=== PATIENT | female | born 1930 | race Caucasian/White ===

== ENCOUNTER 2016-11-10 13:11 | Inpatient (IN) | payer MEDICARE ==
[~2016-11-10] VITALS: Ht 152.4 cm; Wt 38.8 kg
[2016-11-10] MEDS ORDERED: NS 1,000 ML IV SCH (15:23)
--- NOTE | 2016-11-10 16:05 | REP ---
CT HEAD WITHOUT CONTRAST: HISTORY: Loss of consciousness. Areas of decreased attentuation are present in the periventricular white matter. This represents small vessel ischemic disease. There is no intraparenchymal hemorrhage, mass or midline shift. The ventricular system and cortical sulci are dilated consistent with mild volume loss. There is no extracerebral collection. There is no fracture. Mucosal thickening is present in the maxillary and ethmoid sinuses. IMPRESSION: 1. Small vessel ischemic disease. 2. Mild volume loss. Signed by Douglas Jeffrey MD 11/10/2016 04:08 P
--- NOTE | 2016-11-10 16:15 | REP ---
Chest x-ray: Single view: History: Altered mental status. No comparison studies. Findings: The lungs are well inflated and free of infiltrate. Cardiomediastinal silhouette is unremarkable. There is diffuse osteopenia. There are some degenerative changes in the thoracic and lumbar spine. Mild vascular calcification is observed. Pulmonary vasculature is not increased. Impression: No active disease. Signed by Andrey Hancock MD 11/10/2016 07:45 P
--- NOTE | 2016-11-10 16:24 | REP ---
Pelvis and bilateral hips: Six views. History: Injury in a fall. Findings: AP view of the pelvis demonstrates some diffuse osteopenia. Bony pelvic ring appears intact. No pelvic or sacral fracture is appreciated. There is bilateral hip joint osteoarthritis. Vascular calcifications is noted. Degenerative spondylosis changes are noted in the lumbar spine. AP and frog-leg views of the right hip show mild superior joint space narrowing and spur formation consistent with osteoarthritis. No fracture is seen. Three views of the left hip demonstrate osteoarthritic spurring on the head/neck junction of the femur. There is some greater trochanteric spurring and mild acetabular spurring. Superior joint space narrowing is seen. No fracture is noted. Impression: Bilateral hip joint osteoarthritis. Diffuse osteopenia. No fracture seen. Signed by Andrey Hancock MD 11/10/2016 07:45 P
[2016-11-10 16:31] LABS: MEAN CORPUSCULAR HEMOGLOBIN 31.2 pg (27.0-33.0); MEAN CORPUSCULAR HGB CONC 32.2 g/dl (32.0-36.5); MEAN CORPUSCULAR VOLUME 96.8 fl (80.0-96.0); PLATELET COUNT, AUTOMATED 175 k/mm3 (150-450); RED CELL DISTRIBUTION WIDTH 13.3 % (11.5-14.5)
[2016-11-10 16:55] LABS: ALBUMIN 3.9 GM/DL (3.2-5.2); ALBUMIN/GLOBULIN RATIO 1.03 (1.00-1.93); ALKALINE PHOSPHATASE 102 U/L (45-117); ALT/SGPT 44 U/L (12-78); ANION GAP 15 MEQ/L (8-16); AST/SGOT 81 U/L (15-37); BILIRUBIN,DIRECT 0.3 MG/DL (0.0-0.2); BILIRUBIN,TOTAL 1.2 MG/DL (0.2-1.0); BLOOD UREA NITROGEN 37 MG/DL (7-18); CALCIUM LEVEL 10.6 MG/DL (8.8-10.2); CARBON DIOXIDE LEVEL 24 MEQ/L (21-32); CHLORIDE LEVEL 109 MEQ/L (98-107); CREATININE FOR GFR 1.05 MG/DL (0.55-1.02); GLOMERULAR FILTRATION RATE 52.8 (>32); GLUCOSE, FASTING 104 MG/DL (83-110); POTASSIUM SERUM 3.8 MEQ/L (3.5-5.1); SODIUM LEVEL 148 MEQ/L (136-145); TOTAL PROTEIN 7.7 GM/DL (6.4-8.2)
[2016-11-10 16:58] LABS: BANDS 10 % (< 11)
[2016-11-10] MEDS ORDERED: PROB1TAB PO (20:08)
[2016-11-10] MEDS ORDERED: VITMTA PO (20:08)
[2016-11-10] MEDS ORDERED: ASCO500T PO (20:08)
[2016-11-10] MEDS ORDERED: CALC600T21 PO (20:08)
[2016-11-10] MEDS ORDERED: VITA-122 PO (20:08)
--- NOTE | 2016-11-10 20:58 | ECGEPIP ---
Stationary ECG Study [facility] - ED Test Date: 2016-11-10 Pat Name: CLARK CHAND Department: Room: - Gender: F Double Bottom Driver: KATRINA : 1930 Requested By: GABE Delatorre Order Number: [id number] Reading MD: Nguyễn Gonsalez Measurements Intervals [place] Rate: 82 P: 91 VT: 133 QRS: -25 QRSD: 86 T: 120 QT: 203 QTc: 238 Interpretive Statements SINUS RHYTHM BORDERLINE LEFT AXIS DEVIATION NONSPECIFIC ST & T-WAVE ABNORMALITY NO PRIORS Electronically Signed On 11-10-2016 20:58:09 EST by Nguyễn Gonsalez
[2016-11-10 21:40] VITALS: BP 127/60
[2016-11-10] MEDS: NS 1,000 ML IV SCH (22:09)
[2016-11-10] MEDS ORDERED: VANCOMYCIN HCL 1,000 MG, VIAL MATE ADAPTER 1 EACH in D5W 250 ML IV SCH (22:45)
[2016-11-10] MEDS ORDERED: MEROPENEM INJ 1 GM in D5W MINI-BAG PLUS 100 ML IV SCH (23:00)
--- NOTE | 2016-11-10 23:20 | PHACANCOPD ---
PHARMACY VANCOMYCIN DOSING Pt Demographics Demographics Patient Age:86 , Weight:38.400 , Gender: female Events Past 24 Hours Events Past 24 Hours: NO: Change in CrCl, Dialysis, Diuretic Therapy, Elevation in WBC, Fever, Other, Pending Diagnostics, Pending Procedures Vancomycin Vancomycin Load Y/N: Yes Load Dose Date Time Vancomycin Load Dose: 750MG Date: 11/11/16 Time: 01:00 Vancomycin Dose Date: 11/11/16. Current Vancomycin Dose: [500MG IV Q24H (09:00)] Intermittent Dosing?: No Labs Labs Laboratory Tests 11/10/16 16:15 Red Blood Count 5.26, Mean Corpuscular Volume 96.8 H, Mean Corpuscular Hemoglobin 31.2, Mean Corpuscular Hemoglobin Concent 32.2, Red Cell Distribution Width 13.3, Neutrophils (%) (Auto) , Lymphocytes (%) (Auto) , Monocytes (%) (Auto) , Eosinophils (%) (Auto) , Basophils (%) (Auto) , Neutrophils # (Auto) , Lymphocytes # (Auto) , Monocytes # (Auto) , Eosinophils # (Auto) , Basophils # (Auto) Micro Microbiology 11/10/16 Urine Culture, Received Pending Creatinine Clearance Date:11/10/16. Creatinine Clearance: [> 20ml/min]. Assessment and Plan Maintaining Current Dose?: Yes Reason for dose change: Other Pharmacist Note Pharmacist Note Date: 11/11/16. Pharm.D. note: 86YO FEMALE, 60: in HEIGHT, 39.6KG in WEIGHT, SCR 1.05 mcg.ml, CRCL 23ml/min. MEROPENEM 1GM V Q12H STARTING AT 23:00 WE WILL GIVE A VANCO 750MG LOAD AT 01:00 FOLLOWED BY VANCO 500MG IV Q24H STARTING AT 09:00 VANCO TROUGH TO FOLLOW WHEN AT [facility] Nov 10, 2016 23:20
[2016-11-10] MEDS ORDERED: INFLUENZA VIRUS VACCINE HIGH DOSE 0.5 ML SYRINGE (90662) IM SCH (23:45)
--- NOTE | 2016-11-10 23:45 | HPE ---
DATE OF ADMISSION: 11/10/2016 REASON FOR ADMISSION: Non-ST elevation myocardial infarction (NSTEMI). HISTORY OF PRESENT ILLNESS: The patient is an 86-year-old female with no past medical history, lives independently, was brought into the emergency room via ambulance after her family found her on the floor. The patient was on the floor for an unknown period of time. She was last visited by one of her friends yesterday around mid day after she called him because of a fall. Per family, the patient had a fall early Thursday morning at 1:00 a.m. She was on the floor, had her phone with her, called her friend who came by, helped her up and put her in bed, left around Thursday. She talked to him later on in the day when he called to check on her and then Thursday her family tried to call her, but she did not answer. They tried multiple times, after she did not answer and then they showed up at her house on Thursday where she was found on the floor with some scraping to her neck and shoulder. At that time, the patient was awake but confused, she did not have any pain anywhere. In the ER she was oriented to time and person but not to place. Per the family, she normally is alert and oriented but they have noted that over the past few days, she has been more disoriented and confused than her normal baseline mentation. The patient, however, appears disheveled and unkempt. Per the family, she likely will need more help at home or terminal block assembler placement and she is not fit to live by herself any longer. In the emergency room, the patient was found to have elevated troponin of 1.75, some EKG abnormalities. Dr. Peralta was contacted from the emergency room. He recommended to manage the patient medically. It was discussed with the family at length who agreed that the patient needs to remain in [place] and be managed medically and not to be transferred for any invasive procedures. It was briefly discussed with the patient, who agreed, stating that she has lived a long life and does not want any invasive or heroic measures. Medical Orders for Life-Sustaining Treatment (MOLST) form was completed in the emergency room where the patient wanted to be DO NOT RESUSCITATE, DO NOT INTUBATE and it was placed on the chart. The patient was admitted to telemetry under hospitalist service. REVIEW OF SYSTEMS: Unable to obtain due to the patient's confused mentation. PAST MEDICAL HISTORY: None. PAST SURGICAL HISTORY: None. ALLERGIES: None. MEDICATIONS: The patient is on multivitamin daily, ascorbic acid - unknown strength, calcium carbonate - unknown strength, vitamin D - unknown strength, and probiotic - unknown strength. FAMILY HISTORY: Noncontributory. SOCIAL HISTORY: The patient does not smoke or drink. Lives alone at home. She has a friend of hers that comes and visits her periodically. He is the one that found her when she fell the day before admission. The patient has not seen a physician in a long time due to lack of any medical problems per her family. PHYSICAL FINDINGS: Blood pressure on admission was 140/58, temperature 96.5, pulse 66, respiratory rate 20. Pulse oximetry 90% on room air. HEENT: Pupils equal, round, reactive to light and accommodation. Neck: Supple. No jugular venous distention (JVD). Lungs: Clear to auscultation (CTA) bilaterally. Abdomen: Soft, nontender, nondistended. Extremities: No clubbing, cyanosis or edema. Skin: The patient has some abrasions to the back of her neck and shoulder. Neurologic: The patient is oriented to self and time but not to place. Per her family, the patient's mentation has been on and off for the past few days. LABORATORY FINDINGS: WBC 16, hemoglobin 16.4, hematocrit 50.9, platelet count 175, sodium 148, potassium 3.8, chloride 109, BUN 37, creatinine 1.05, hemoglobin A1c 5.2, lactic acid initially was 2.5, repeat is 2.2. CK was 784, troponin 1.75, TSH 1.62. Toxicology: Acetaminophen less than 2, salicylate less than 1.7. Urinalysis showed 2+ ketones, 1+ blood, 4 RBCs, WBCs 1, bacteria negative leukocyte esterase negative, nitrites negative. IMAGING STUDIES: The patient underwent a CT of the head which showed small ischemic disease, mild volume loss. Chest x-ray showed no active disease. Hip x-ray showed bilateral joint osteoarthritis, diffuse osteopenia, no fractures seen. ASSESSMENT AND PLAN: 1. Non-ST elevation myocardial infarction (NSTEMI). Repeat EKG did not show any obvious ST elevations at this time but there are some ST changes. We will continue to trend cardiac markers every 8 hours. We will repeat EKG in the morning. We will order an echocardiogram. Dr. Peralta has agreed to see the patient in consultation. A lengthy discussion was had with the family and patient who declined transfer and wanting the patient to be managed medically. MOLST form was completed and placed on the chart. We will start the patient on Lovenox. We will start the patient on metoprolol 25 mg by mouth four times a day, hold for systolic blood pressure less than 100 or heart rate less than 60. We will order a lipid panel in the morning. Continue oxygen supplementation. The patient denies any chest pain at this time. We will hold off on any nitro or morphine. 2. Lactic acidosis. We will continue to trend. We will order one more lactic acid level. 3. Rhabdomyolysis secondary to fall and staying on the floor for several hours. We will continue to trend CK, continue IV fluids at a rate of 80 mL an hour. We will continue to monitor kidney function. 4. Acute kidney injury. Unknown if the patient has a history of kidney disease. Per family, the patient has no medical history. This may be secondary to dehydration given that the patient has been on the floor for several hours. We will continue to trend creatinine level and to monitor kidney function. 5. Leukocytosis. May be reactive versus infectious. We will start the patient on antibiotics, broad-spectrum. Urine culture and blood cultures are pending. The patient has no obvious source at this time. If cultures come back negative, antibiotics will likely be discontinued. The patient denies any cough. Chest x-ray was found to be normal. 6. Metabolic encephalopathy. The patient has altered mentation, may be secondary to ongoing progressing dementia versus metabolic encephalopathy. We will continue to monitor the patient's mental status. At this time, we will put her on fall risk precautions. 7. Fall, unwitnessed, unknown etiology. We will monitor the patient on telemetry to rule out any cardiac arrhythmia as a cause to syncopal episodes. A CT scan was done in the emergency room which was negative. We will order physical therapy and occupational therapy once the patient stabilizes. 8. Potential placement. We will consult patient and family services (PFS). Per family, the patient is likely unable to return home to live by herself and all her family is out of the area. We will consult PFS for potential placement. 9. Deep vein thrombosis (DVT) prophylaxis. Continue Lovenox at this time. The patient will be seen by Dr. Michela Elaine in the morning. LARRY
[2016-11-10] MEDS: ENOXAPARIN 100MG/1ML SYRINGE (J1650) SC SCH (23:54)
[2016-11-10] MEDS: METOPROLOL TART 25 MG TABLET PO SCH (23:55)
[2016-11-11] VITALS (7 sets, daily range): BP systolic 126–177; BP diastolic 48–80
[2016-11-11] MEDS ORDERED: VANCOMYCIN HCL 750 MG, VIAL MATE ADAPTER 1 EACH in D5W 250 ML IV ONE (01:00)
[2016-11-11] MEDS: METOPROLOL TART 25 MG TABLET PO SCH ×4 (06:00→23:04)
--- NOTE | 2016-11-11 06:11 | ECGEPIP ---
Stationary ECG Study [facility] Test Date: 2016-11-10 Pat Name: CLARK CHAND Department: Room: - Gender: F Glass Polisher: marvel : 1930 Requested By: LATRICE PARKER Order Number: [id number] Reading MD: Tabitha Irwin Measurements Intervals [place] Rate: 73 P: 91 [place]: 143 QRS: -25 QRSD: 83 T: 96 QT: 383 QTc: 423 Interpretive Statements SINUS RHYTHM BORDERLINE LEFT AXIS DEVIATION NONSPECIFIC T-WAVE ABNORMALITY similar to earlier same presence of U waves noted Electronically Signed On 11-11-2016 6:11:08 EST by Tabitha Irwin
[2016-11-11 07:40] LABS: DIFF SLIDE NUMBER 95; MEAN CORPUSCULAR HEMOGLOBIN 30.9 pg (27.0-33.0); MEAN CORPUSCULAR VOLUME 96.6 fl (80.0-96.0); PLATELET COUNT, AUTOMATED 141 k/mm3 (150-450); RED CELL DISTRIBUTION WIDTH 13.3 % (11.5-14.5); WHITE BLOOD COUNT 15.2 K/mm3 (4.0-10.0)
[2016-11-11] MEDS: LACTOBACILLUS ACIDOPHILUS CAP (BACID) PO SCH ×3 (08:00→17:18)
[2016-11-11 08:01] LABS: ALBUMIN 3.1 GM/DL (3.2-5.2); ALBUMIN/GLOBULIN RATIO 0.97 (1.00-1.93); ALKALINE PHOSPHATASE 82 U/L (45-117); ALT/SGPT 44 U/L (12-78); ANION GAP 10 MEQ/L (8-16); AST/SGOT 84 U/L (15-37); BILIRUBIN,TOTAL 0.9 MG/DL (0.2-1.0); BLOOD UREA NITROGEN 35 MG/DL (7-18); CALCIUM LEVEL 9.4 MG/DL (8.8-10.2); CARBON DIOXIDE LEVEL 25 MEQ/L (21-32); CHLORIDE LEVEL 114 MEQ/L (98-107); CHOLESTEROL LEVEL 156 MG/DL (<200); CREATININE FOR GFR 0.77 MG/DL (0.55-1.02); GLOMERULAR FILTRATION RATE > 60.0 (>32); GLUCOSE, FASTING 95 MG/DL (83-110); MAGNESIUM LEVEL 2.5 MG/DL (1.8-2.4); POTASSIUM SERUM 3.8 MEQ/L (3.5-5.1); SODIUM LEVEL 149 MEQ/L (136-145); TOTAL PROTEIN 6.3 GM/DL (6.4-8.2); TRIGLYCERIDES LEVEL 95 MG/DL (<150)
[2016-11-11 08:34] LABS: BANDS 2 % (< 11)
[2016-11-11 08:35] LABS: ANISOCYTOSIS 1+
--- NOTE | 2016-11-11 08:53 | ECGEPIP ---
Stationary ECG Study [facility] Test Date: 2016-11-11 Pat Name: CLARK CHAND Department: Room: [place] [address] Gender: F Furnace Keeper: PRESTON : 1930 Requested By: LATRICE PARKER Order Number: [id number] Reading MD: Tabitha Irwin Measurements Intervals [place] Rate: 62 P: 74 MN: 132 QRS: -39 QRSD: 80 T: 95 QT: 398 QTc: 407 Interpretive Statements SINUS RHYTHM LEFT AXIS DEVIATION T-WAVE ABNORMALITY VS t AND U WAVES SEPTAL LEADS NONSPECIFIC ST ABN SIMILAR TO 11/10/16 Electronically Signed On 11-11-2016 8:53:13 EST by Tabitha Irwin
[2016-11-11] MEDS ORDERED: VANCOMYCIN HCL 500 MG in D5W MINI-BAG PLUS 100 ML IV SCH (09:00)
[2016-11-11] MEDS: NS 1,000 ML IV SCH ×2 (13:33→22:32)
--- NOTE | 2016-11-11 13:48 | IPN ---
DATE OF SERVICE: 11/11/2016 The patient seen and examined at the bedside. Chart has been reviewed. The patient is extremely confused this morning. "I don't want you people in my house. I don't want anyone touching me." The patient is reluctant to be interviewed. She is not answering questions appropriately. She is disoriented to person, place, and time. The patient thinks that she is at home and that people are coming into her home. After explaining that she is in the hospital and it is 11/11/2016, that she is being treated for coronary artery disease (CAD), myocardial infarction (ND), as well as possible infection, the patient was quiet. She refused to be examined and states "I need you to stay away from me. This is my body. I don't want to be touched." Temperature 99.1, pulse 65, respiratory rate 18, blood pressure 136/62, 94% on 2 liters nasal cannula. Unable to be examined due to the patient's belligerence and refusal to be examined. The patient is disoriented to person, time, and place. Unable to be examined, as the patient refused examination. LABORATORY DATA: White count 15, hemoglobin 13, hematocrit 43, platelet count 141. Sodium 149, potassium 3.8, chloride 114, bicarbonate 25, BUN 35, creatinine 0.77 , glucose of 95, magnesium of 2.5, troponin 1.11, total CK 911, MB fraction 10.7. ASSESSMENT AND PLAN: This is an 86-year-old female who lives alone, was found at her home, unable to provide a history, currently with the following issues: 1. Non-ST elevation myocardial infarction. The patient is being treated medically and conservatively. Echocardiogram is still pending. Dr. Peralta has agreed to see the patient in consultation. A lengthy discussion was done by Dr. Valarie Whitaker with the family, and the patient declined transfer, wanting the patient to be managed medically. A medical orders for life-sustaining treatment (MOLST) form has been completed. The patient is currently on Lovenox, metoprolol hold for systolic blood pressure less than 100 or less than 60 heart rate. Continue with oxygen as needed. Currently, asymptomatic. No complaints of chest pain, shortness of breath. 2. Rhabdomyolysis secondary to fall and being on the floor for several hours, mild. Continue intravenous (IV) fluids. Monitor for fluid overload. Monitor kidney function. 3. Acute kidney injury secondary to mild rhabdomyolysis secondary to fall. 4. Leukocytosis, reactive versus infectious. Currently, on empiric antibiotics. The patient is unreliable. Unable to provide any history or review of systems. Monitor lactic acid. 5. Dementia. The patient will need placement. She lives alone and has had recurrent falls. Currently, with severe disorientation. [facility]PITAL CENTERAlejandra
--- NOTE | 2016-11-11 20:36 | CR ---
DATE OF CONSULTATION: 11/11/2016 REFERRING PHYSICIAN: Dr. Whitaker HISTORY OF PRESENT ILLNESS: I was asked by Dr. Whitaker to see Mrs. Wilson for presumptive qsp-CA-hmabxowvz myocardial infarction (NON-STEMI). BRIEF HISTORY: Mrs. Wilson is an 86-year-old female who apparently has not been seen by physician for many years because "there was nothing wrong with her." She was found by family member unresponsive on the floor and was brought to hospital for further evaluation. She apparently had been seen previously the day before, so the time she spent on the floor probably was not more than about 12 hours at the maximum. She was confused, but the evaluation was otherwise unremarkable other than elevated troponin and CK and CK-MB. Unfortunately, the patient was quite incoherent, and no further significant information was possible to be obtained. When I saw the patient in intensive care, the situation did not appreciably change. She was completely disoriented, and no history was possible to obtain. PAST MEDICAL HISTORY: Based on admission note is negative, and it looks like she has not had any medical care for years. FAMILY HISTORY: The patient lives alone but unable to obtain. ALLERGIES: No allergies. OUTPATIENT MEDICATIONS: Essentially vitamins. FAMILY HISTORY: Unable to obtain. SOCIAL HISTORY: The patient lives alone but does not smoke and does not drink. REVIEW OF SYSTEMS: Unable to obtain. PHYSICAL EXAMINATION: The last set of vital signs revealed blood pressure 139/64, heart rate is in bradycardiac range, mostly in 50s and low 60s. She is afebrile. Saturation is 93-96% on 2 liters of oxygen. Her weight is documented at 40 kg. She appears her age or older, cachectic. She seems to be more mildly agitated and is not oriented even to person. When asked to state her name she would not do so, but she is alert and conversant. Her jugular venous pulse (JVP) is not elevated. She has faint bilateral carotid bruits. She has also a fairly faint murmur at the base. I do not appreciate a gallop or rub. Lungs are relatively clear to auscultation with fair air movement. I do not appreciate any obvious organomegaly on abdominal exam. She has no peripheral edema. Peripheral pulses are palpable. Neurologically she is grossly intact as far as motor function is concerned. She moves all four extremities. Her language seems to be fluent but completely disoriented. LABORATORY: Basic metabolic panel essentially normal. Potassium 3.8, BUN 35, creatinine 0.8, and glucose 95. Lactic acid that was initially marginally elevated to 2.5 eventually came back to normal. Troponin on admission was 1.75 with CK-MB 780, and this has been dropping since. TSH was 1.6. CBC: Hemoglobin 13.9, hematocrit 43, platelet count 141,000. There are some atypical lymphocytes, monocytes, and metamyelocytes in peripheral smear. IMAGING: She had a hip x-ray that revealed no fractures but degenerative joint disease (DJD. Chest x-ray was relatively unremarkable other than obvious aortic calcifications. CT of the head did not reveal any hemorrhage or obvious strokes. There was chronic small-vessel disease. Her ECG was also surprisingly unremarkable, revealing sinus rhythm with ventricular rate 73 beats per minute and fairly minimal nonspecific repolarization abnormalities and borderline left axis deviation. ASSESSMENT AND PLAN: Mrs. Wilson is an 86-year-old female who has not had any medical care for years who presents after a loss of consciousness, possibly just fall, even though no history is possible to obtain, and is found to have mild troponin elevation. She does not seem to have any discomfort or chest pain, and her ECG is relatively unremarkable. Apparently, there was a discussion between the hospitalist team and family, who do not wish to have any aggressive measures, which seems to be completely appropriate. In this situation where patient is clearly disoriented and does not seem to be any distress, I do not see any role for cardiology input. My preference would be to administer aspirin and possibly statin, even though her lipid panel is good. I would not give her any beta sharri, because she is relatively bradycardic. I do not foresee providing any aggressive measures other than TLC provided her mental condition does not improve. If it should get better, please contact me. We can always re-evaluate her.
[2016-11-11] MEDS: ENOXAPARIN 100MG/1ML SYRINGE (J1650) SC SCH (22:31)
[2016-11-12] VITALS (8 sets, daily range): BP systolic 111–175; BP diastolic 55–70
[2016-11-12 05:04] LABS: EOS # 0.1 K/mm3 (0.0-0.50); EOS % 0.5 % (0.0-3.0); LARGE UNSTAINED CELL # 0.1 K/mm3 (0.0-0.4); LARGE UNSTAINED CELL % 0.4 % (0.0-4.0); LYMPH % 7.8 % (24.0-44.0); MEAN CORPUSCULAR HEMOGLOBIN 32.1 pg (27.0-33.0); MEAN CORPUSCULAR HGB CONC 32.9 g/dl (32.0-36.5); MEAN CORPUSCULAR VOLUME 97.4 fl (80.0-96.0); MONO # 0.6 K/mm3 (0.0-0.8); MONO % 4.7 % (0.0-5.0); NEUTROPHILS # 10.8 K/mm3 (1.8-7.7); NEUTROPHILS % 86.6 % (36.0-66.0); PLATELET COUNT, AUTOMATED 123 k/mm3 (150-450); RED CELL DISTRIBUTION WIDTH 13.3 % (11.5-14.5); WHITE BLOOD COUNT 12.5 K/mm3 (4.0-10.0)
[2016-11-12 05:21] LABS: ALBUMIN 2.5 GM/DL (3.2-5.2); ALBUMIN/GLOBULIN RATIO 0.74 (1.00-1.93); ALKALINE PHOSPHATASE 67 U/L (45-117); ALT/SGPT 40 U/L (12-78); ANION GAP 11 MEQ/L (8-16); AST/SGOT 58 U/L (15-37); BILIRUBIN,TOTAL 0.8 MG/DL (0.2-1.0); BLOOD UREA NITROGEN 27 MG/DL (7-18); CALCIUM LEVEL 9.6 MG/DL (8.8-10.2); CARBON DIOXIDE LEVEL 21 MEQ/L (21-32); CHLORIDE LEVEL 117 MEQ/L (98-107); CREATININE FOR GFR 0.51 MG/DL (0.55-1.02); GLOMERULAR FILTRATION RATE > 60.0 (>32); GLUCOSE, FASTING 81 MG/DL (83-110); MAGNESIUM LEVEL 2.3 MG/DL (1.8-2.4); POTASSIUM SERUM 3.6 MEQ/L (3.5-5.1); SODIUM LEVEL 149 MEQ/L (136-145); TOTAL PROTEIN 5.9 GM/DL (6.4-8.2)
[2016-11-12] MEDS: METOPROLOL TART 25 MG TABLET PO SCH (05:53)
[2016-11-12] MEDS: D5W 1,000 ML IV SCH ×2 (08:06→20:53)
[2016-11-12] MEDS: LACTOBACILLUS ACIDOPHILUS CAP (BACID) PO SCH ×2 (08:11→18:18)
[2016-11-12] MEDS: OMEPRAZOLE 20 MG CAP PO SCH (08:12)
[2016-11-12] MEDS: ASPIRIN 81 MG CHEW TABLET PO SCH (08:12)
[2016-11-12] MEDS: LISINOPRIL 5 MG TAB PO SCH ×2 (08:12→20:45)
[2016-11-12] MEDS: ATORVASTATIN 20 MG TAB PO SCH (08:19)
[2016-11-12] MEDS ORDERED: METOPROLOL TART 25 MG TABLET PO SCH (09:00)
[2016-11-12] MEDS ORDERED: CLOPIDOGREL 75 MG TAB PO SCH (09:00)
--- NOTE | 2016-11-12 18:59 | IPN ---
DATE: 11/12/2016 The patient seen and examined at the bedside. Chart has been reviewed. This morning, the patient is much more oriented. She was able to sleep last night. She is oriented to herself, place and time. She states that it is November 08, 2016. She is in intensive care unit (ICU) on the 3rd floor at [facility], unable to state her name. The patient is much more conversant and agreeable to interview and physical examination this morning. She denies any chest pain, pressure, tightness, shortness of breath, palpitations, lightheadedness. She has not been ambulating yet. Overnight, the patient was found to be bradycardic on telemetry and her multiple doses of metoprolol had to be held. The patient was sleeping. Ventricular rate of 43. Asymptomatic at the time. No other intervention aside from holding the metoprolol were made. Temperature 99, pulse 49, respiratory rate 22, blood pressure 150/67, 98% on 2 liters nasal cannula. GENERAL: The patient is awake, alert, oriented to person, place and time. She is answering questions appropriately. No respiratory distress. Speaks in full sentences. Dry mucous membranes with chapped lips. No jugular venous distention (JVD). No thyromegaly. No cervical lymphadenopathy. Poor dentition. LUNGS: Diminished but clear to auscultation. No wheezing, rales or rhonchi. HEART: S1, S2. Sinus bradycardia. ABDOMEN: Soft, nontender, nondistended. EXTREMITIES: No pitting edema. LABORATORY DATA: White count 12.5, hemoglobin 13, hematocrit 41, platelet count 123. Sodium 149, potassium 3.6, chloride 117, bicarbonate 21, BUN 27, creatinine 0.51, glucose of 81. ASSESSMENT AND PLAN: This is an 86-year-old female who lives alone, was found at her home, unable to provide a history, found on the floor and admitted for mild rhabdomyolysis and positive troponin. EKG unremarkable. 1. Non-ST elevation myocardial infarction. The patient is being treated medically and conservatively. Per patient and family, no further evaluation. A lengthy discussion was done by Dr. Valarie Whitaker with the family. The patient declined transfer to [place] for cardiac catheterization and possible stent placement. Currently asymptomatic and being treated on Lovenox. Since the patient has had bradycardic episodes, we will discontinue the patient's metoprolol until heart rate improves. For blood pressure control, start wwavqkxxhqr-hqpxircwip-vizhyv (MICHAEL) inhibitor with holding parameters for systolic pressure less than 20 or creatinine greater than 1.5. Start on Lipitor 40 mg daily and low dose aspirin with proton pump inhibitor. Continue Lovenox for a total of five days. Activity as tolerated. Fall precautions. 2. Mild rhabdomyolysis. The patient was found on the floor for several hours. Continue intravenous (IV) fluids. Monitor for fluid overload. Monitor kidney function with repeat metabolic panel. 3. Acute kidney injury secondary to mild rhabdomyolysis secondary to fall, improving. 4. Leukocytosis, reactive versus infectious. The patient's infectious evaluation had returned with negative findings. Urine culture is negative for blood. Respiratory virus negative. Chest x-ray unremarkable. Free of infiltrate or active disease. No empiric antibiotics for now. 5. Dehydration, hypernatremia due to decrease in oral intake from confusion. The patient will be placed on D5W. Repeat metabolic panel every 6 to 12 hours for adjustment. DISPOSITION: Activity is changed from transfer from with commode privileges to activity as tolerated. Physical therapy (PT) and cardiac rehabilitation evaluation. Thrombocytopenia, monitor platelet count. If less than 50% of admission platelets, we will consider checking heparin induced thrombocytopenia (HIT) panel.
[2016-11-12] MEDS: ENOXAPARIN 100MG/1ML SYRINGE (J1650) SC SCH (21:43)
[2016-11-13 06:00] VITALS: BP 133/62
--- NOTE | 2016-11-13 06:30 | ECHO ---
DATE OF PROCEDURE: 11/12/2016 DATE OF : 1930 AGE: 86 REFERRING PROVIDER: Dr. Valarie Whitaker. PATIENT LOCATION: Room 3205 REASON FOR ECHOCARDIOGRAM: Abnormal EKG. 2D MEASUREMENTS: IVS: 0.84 cm LV: 4.1 cm LVPW: 0.84 cm LA: 2.9 cm Aorta: 2.5 cm IVC: 1.8 cm DOPPLER MEASUREMENTS: Peak velocity across the aortic valve: 2.0 m/s Peak velocity across the LVOT: 1.2 m/s Mitral E: 0.91 Mitral A: 0.82 Ratio greater than1.0 Maximum tricuspid valve velocity: 2.9 m/s 2D COMMENTS: 1. Normal left ventricular size, wall thickness and normal global left ventricular systolic function. The estimated global left ventricular systolic ejection fraction is 60% to 65%. 2. Normal left atrium. Mildly enlarged right atrium. Normal right ventricle. 3. The atrial septum appeared to be normal without evidence of defect or shunt. 4. Normal aortic root. 5. No pericardial effusion seen. 6. Moderately calcified aortic valve with normal leaflet excursion. Mildly calcified mitral annulus with normal anterior mitral valve leaflet motion. Normal tricuspid valve and pulmonic valve. 7. The inferior vena cava was normal in size, central venous pressure is most likely normal. DOPPLER: It detects trace to mild mitral regurgitation and mild to moderate tricuspid regurgitation. The calculated pulmonary artery systolic pressure is 40 to 50 mmHg. Assessment of the left ventricular diastolic function appeared to be normal. IMPRESSION: 1. Normal global left ventricular systolic and diastolic function. 2. Aortic valve sclerosis with probably minimal aortic stenosis. No aortic regurgitation. 3. Mitral annulus calcification with trace to mild mitral regurgitation. 4. Mild to moderate tricuspid regurgitation with moderate pulmonary hypertension and dilated right atrium. No intracardiac shunt was detected.
[2016-11-13 07:10] LABS: BASO % 0.1 % (0.0-1.0); EOS # 0.1 K/mm3 (0.0-0.50); EOS % 1.2 % (0.0-3.0); LARGE UNSTAINED CELL # 0.1 K/mm3 (0.0-0.4); LARGE UNSTAINED CELL % 0.7 % (0.0-4.0); LYMPH # 1.2 K/mm3 (1.5-4.5); LYMPH % 10.3 % (24.0-44.0); MEAN CORPUSCULAR HEMOGLOBIN 31.7 pg (27.0-33.0); MEAN CORPUSCULAR HGB CONC 33.3 g/dl (32.0-36.5); MEAN CORPUSCULAR VOLUME 95.5 fl (80.0-96.0); MONO # 0.6 K/mm3 (0.0-0.8); MONO % 5.9 % (0.0-5.0); NEUTROPHILS # 8.8 K/mm3 (1.8-7.7); NEUTROPHILS % 81.8 % (36.0-66.0); PLATELET COUNT, AUTOMATED 123 k/mm3 (150-450); RED CELL DISTRIBUTION WIDTH 13.1 % (11.5-14.5); WHITE BLOOD COUNT 10.7 K/mm3 (4.0-10.0)
[2016-11-13 07:26] LABS: ALBUMIN 2.1 GM/DL (3.2-5.2); ALBUMIN/GLOBULIN RATIO 0.64 (1.00-1.93); ALKALINE PHOSPHATASE 74 U/L (45-117); ALT/SGPT 33 U/L (12-78); ANION GAP 9 MEQ/L (8-16); AST/SGOT 34 U/L (15-37); BILIRUBIN,TOTAL 0.7 MG/DL (0.2-1.0); BLOOD UREA NITROGEN 16 MG/DL (7-18); CALCIUM LEVEL 8.9 MG/DL (8.8-10.2); CARBON DIOXIDE LEVEL 26 MEQ/L (21-32); CHLORIDE LEVEL 106 MEQ/L (98-107); CREATININE FOR GFR 0.51 MG/DL (0.55-1.02); GLOMERULAR FILTRATION RATE > 60.0 (>32); GLUCOSE, FASTING 125 MG/DL (83-110); MAGNESIUM LEVEL 2.1 MG/DL (1.8-2.4); POTASSIUM SERUM 3.3 MEQ/L (3.5-5.1); SODIUM LEVEL 141 MEQ/L (136-145); TOTAL PROTEIN 5.4 GM/DL (6.4-8.2)
[2016-11-13] MEDS ORDERED: POTASSIUM CHLORIDE 10 MEQ SR TABLET PO ONE (08:00)
[2016-11-13] MEDS ORDERED: LISINOPRIL 10 MG TAB PO SCH (09:00)
[2016-11-13 10:00] VITALS: BP 136/59
[2016-11-13] MEDS: LACTOBACILLUS ACIDOPHILUS CAP (BACID) PO SCH ×2 (10:41→18:31)
[2016-11-13] MEDS: ATORVASTATIN 20 MG TAB PO SCH (10:42)
[2016-11-13] MEDS: OMEPRAZOLE 20 MG CAP PO SCH (10:42)
[2016-11-13] MEDS: ASPIRIN 81 MG CHEW TABLET PO SCH (10:42)
[2016-11-13] MEDS: D5W 1,000 ML IV SCH ×2 (10:44→23:45)
[2016-11-13] MEDS ORDERED: CEPACOL LOZENGE PO ONE (11:15)
--- NOTE | 2016-11-13 17:35 | IPN ---
DATE: 11/13/2016 Patient is seen and examined at the bedside. Chart has been reviewed. Patient has had no issues overnight per nursing. She currently denies any complaints of chest pain, pressure or tightness, lightheadedness, or dizziness. She remains bradycardic, ventricular rate of 50-55. She is currently asymptomatic. No new complaints aside from generalized weakness, difficulty ambulating secondary to fatigue. No other issues. No fever or chills overnight. She complains of a dry mouth but no sore throat. PHYSICAL EXAMINATION: VITAL SIGNS: Temperature 97.7, pulse 51 sinus bradycardia, respiratory rate 18, blood pressure 133/62, 94% on room air. GENERAL: Patient is awake, alert and oriented to person, place and time. She is answering questions appropriately. No respiratory distress. No use of respiratory accessory muscles. HEENT: Pupils are equal, round, and reactive to light and accommodation. Extraocular muscles are intact. Dry mucous membranes. Dry mouth and chapped lips. NECK: No jugular venous distention, thyromegaly, or cervical lymphadenopathy. LUNGS: Diminished, clear to auscultation. No wheezing, rales, or rhonchi. HEART: S1, S2. Sinus bradycardia. ABDOMEN: Soft, nontender, nondistended. Positive bowel sounds. EXTREMITIES: No pitting edema. LABORATORY DATA: White count 10, hemoglobin 13, hematocrit 40, platelet count 123, admission platelet count is 175. Sodium 141, potassium 3.3, chloride 106, bicarbonate 26, BUN 16, creatinine 0.51 , glucose of 125. Troponin of 0.13, total CK 83, MB fraction 1.4, previous troponin is 0.34. MRSA screen and respiratory panel are both negative. Blood culture is negative. Urine culture on 11/10/2016 shows no growth. ASSESSMENT AND PLAN: This is an 86-year-old female with history of congestive heart failure, ejection fraction (EF) of 60% to 65%, normal systolic function, mild mitral regurgitation, moderate tricuspid regurgitation, pulmonary artery (PA) pressure 40-50 mmHg, presented to the emergency room with worsening shortness of breath, was found to have a troponin level of 1.75, admitted for acute coronary syndrome, lgx-UM-adstbcard myocardial infarction and treated conservatively with aspirin and Lovenox. CURRENT ISSUES: 1. Non-ST elevation myocardial infarction ([place]). Patient is being treated medically and conservatively. Per patient and family, no further evaluation in [place] or coronary angiogram requested. A lengthy discussion was done by Dr. Valarie Whitaker with the family. Patient declined transfer to [place] for cardiac catheterization and possible stent placement. She is currently asymptomatic and being treated with Lovenox. She has had bradycardic episodes and her metoprolol has been decreased and discontinued. For blood pressure control, patient's blekqqjwvgi-xfrvemfdrm-timwsg (MICHAEL) inhibitor has been started and she appears to be stable. Twice a day dosing will be changed to daily dosing. Monitor patient's creatinine. She is also on Lipitor 40 mg daily and low-dose aspirin with proton pump inhibitor (PPI) to prevent possible gastrointestinal (GI) bleed. Patient is to complete five full days of Lovenox and then this will be discontinued. She will be continued on aspirin, Lipitor, MICHAEL inhibitor, and if heart rate permits will be restarted on low-dose beta blockade. 2. Mild rhabdomyolysis. Patient was found on the floor for several hours. She is currently on intravenous fluids. No signs of fluid overload. Monitor kidney function and repeat basic metabolic panel in the morning. 3. Acute kidney injury, secondary to mild rhabdomyolysis secondary to fall. The patient's creatinine is normal. The patient is status post intravenous fluids. No signs of overload. She is tolerating her diet well. Therefore, we will discontinue patient's IV fluids since she is taking 100% oral intake and sodium level is less than 140. 4. [place] valve moderate tricuspid regurgitation with moderate pulmonary hypertension, dilated right atrium. At this time, there is no acute intervention required. We will continue to monitor patient's respiratory status. 5. Dehydration and hypernatremia, due to decreased oral intake from confusion. Patient will be started on D5W. Her sodium level is significantly improved from 149 to 141 over the past 24 hours, within the limits of 10-12 mEq over 24 hours to prevent central pontine myelinolysis. Until the patient takes 100% oral intake, we will continue with IV fluids with gentle hydration and monitor patient's metabolic panel. DISPOSITION: Patient will await physical therapy (PT) clearance. She is requesting placement at this time. Therefore, we will obtain patient and family services (PFS) consultation. LARRY
[2016-11-13 18:00] VITALS: BP 141/63
[2016-11-13] MEDS: ENOXAPARIN 100MG/1ML SYRINGE (J1650) SC SCH (21:54)
[2016-11-13 22:00] VITALS: BP 125/58
[2016-11-14 02:00] VITALS: BP 124/59
[2016-11-14 06:00] VITALS: BP 137/84
[2016-11-14 06:47] LABS: ANION GAP 7 MEQ/L (8-16); BLOOD UREA NITROGEN 14 MG/DL (7-18); CALCIUM LEVEL 8.5 MG/DL (8.8-10.2); CARBON DIOXIDE LEVEL 26 MEQ/L (21-32); CHLORIDE LEVEL 110 MEQ/L (98-107); CREATININE FOR GFR 0.53 MG/DL (0.55-1.02); GLOMERULAR FILTRATION RATE > 60.0 (>32); GLUCOSE, FASTING 101 MG/DL (83-110); POTASSIUM SERUM 3.8 MEQ/L (3.5-5.1); SODIUM LEVEL 143 MEQ/L (136-145)
[2016-11-14] MEDS: CARVedilol 3.125 MG TAB PO SCH ×2 (10:30→21:54)
[2016-11-14] MEDS: ATORVASTATIN 20 MG TAB PO SCH (10:31)
[2016-11-14] MEDS: LISINOPRIL 5 MG TAB PO SCH (10:31)
[2016-11-14] MEDS: CLOPIDOGREL 75 MG TAB PO SCH (10:31)
[2016-11-14] MEDS: LACTOBACILLUS ACIDOPHILUS CAP (BACID) PO SCH ×2 (10:31→17:19)
[2016-11-14] MEDS: OMEPRAZOLE 20 MG CAP PO SCH (10:31)
[2016-11-14] MEDS: ASPIRIN 81 MG CHEW TABLET PO SCH (10:31)
[2016-11-14] MEDS ORDERED: LISI-542 PO (12:11)
[2016-11-14] MEDS ORDERED: ASPI81TA PO (12:11)
[2016-11-14] MEDS ORDERED: CLOP75TA2 PO (12:11)
[2016-11-14] MEDS ORDERED: LOVE0.8I SC (12:11)
[2016-11-14] MEDS ORDERED: ATOR1TAB21 PO (12:11)
[2016-11-14] MEDS ORDERED: OMEP20CA3 PO (12:11)
[2016-11-14] MEDS ORDERED: CARV3.12 PO (12:11)
[2016-11-14 18:00] VITALS: BP 126/58
[2016-11-14] MEDS: ENOXAPARIN 100MG/1ML SYRINGE (J1650) SC SCH (21:55)
[2016-11-14 22:00] VITALS: BP 114/70
[2016-11-15 02:00] VITALS: BP 136/58
[2016-11-15 06:00] VITALS: BP 143/71
[2016-11-15 06:50] LABS: ANION GAP 7 MEQ/L (8-16); BLOOD UREA NITROGEN 17 MG/DL (7-18); CARBON DIOXIDE LEVEL 28 MEQ/L (21-32); CHLORIDE LEVEL 105 MEQ/L (98-107); CREATININE FOR GFR 0.57 MG/DL (0.55-1.02); GLOMERULAR FILTRATION RATE > 60.0 (>32); GLUCOSE, FASTING 107 MG/DL (83-110); SODIUM LEVEL 140 MEQ/L (136-145)
[2016-11-15] MEDS: LISINOPRIL 5 MG TAB PO SCH (08:51)
[2016-11-15] MEDS: ASPIRIN 81 MG CHEW TABLET PO SCH (08:53)
[2016-11-15] MEDS: ATORVASTATIN 20 MG TAB PO SCH (08:53)
[2016-11-15] MEDS: CLOPIDOGREL 75 MG TAB PO SCH (08:53)
[2016-11-15] MEDS: OMEPRAZOLE 20 MG CAP PO SCH (08:53)
[2016-11-15] MEDS: LACTOBACILLUS ACIDOPHILUS CAP (BACID) PO SCH ×2 (08:53→17:47)
[2016-11-15] MEDS: CARVedilol 3.125 MG TAB PO SCH ×2 (08:53→21:00)
--- NOTE | 2016-11-15 09:31 | IPN ---
DATE: 11/14/2016 Patient is seen and examined at the bedside. Chart has been reviewed. THe patient is back to her baseline mental status, awake, alert, oriented. Answering questions appropriately. She knows her name. She knows where she is and date. She currently denies any chest pain, pressure, tightness, shortness of breath, palpitations, lightheadedness, or dizziness. PHYSICAL EXAMINATION: LUNGS: Clear to auscultation. No wheezes, rales, or rhonchi. HEART: S1, S2. Sinus rhythm, currently ventricular rate of 61. ABDOMEN: Soft, nontender, nondistended. Positive bowel sounds. EXTREMITIES: No pitting edema. LABORATORY DATA: White count 10.7, hemoglobin 13, hematocrit 40, platelet count 123, admission platelet count 175. Sodium 143, potassium 3.8, chloride 110, bicarbonate 26, BUN 14, creatinine 0.53, glucose of 101. Troponin of 0.09. Echocardiogram: Ejection fraction of 60 to 65%. Normal left ventricular systolic function. Minimal aortic stenosis. No aortic regurgitation. Moderate pulmonary hypertension. Mild to moderate tricuspid regurgitation. ASSESSMENT AND PLAN: This is an 86-year-old female with a history of congestive heart failure, ejection fraction (EF) of 60% to 65%, normal systolic function, mild mitral regurgitation, moderate tricuspid regurgitation, pulmonary artery (PA) pressure 40-50 mmHg, presented to the emergency room with worsening shortness of breath and found to have a troponin level of 1.75, admitted for acute coronary syndrome, dju-VM-xitcxhont myocardial infarction and treated conservatively with aspirin, Lovenox, Plavix, Lipitor, as needed nitroglycerin, and oxygen. CURRENT ISSUES: 1. Non-ST elevation myocardial infarction ([place]). Patient is being treated medically and conservatively. She is currently asymptomatic and is on his fourth day of Lovenox, aspirin. We will start Plavix, Lipitor and as needed nitroglycerin. Due to bradycardia, the patient's beta blockade was discontinued. For blood pressure control, MICHAEL inhibitor was given. To prevent gastrointestinal bleed with aspirin, Lovenox and Plavix, the patient has been given a proton pump inhibitor as well. 2. Mild rhabdomyolysis. Patient was found on the floor for several hours. Kidney function has improved, as has hypernatremia. 3. [place] valve, moderate tricuspid regurgitation with moderate pulmonary hypertension. No acute intervention. Continue to monitor her respiratory status. 4. Dehydration and hypernatremia and rhabdomyolysis, improved. May discontinue IV fluids for now. DISPOSITION: Awaiting inpatient rehabilitation. Per the family, they would like to take her home eventually and to live with her son two hours away from [place]. For nail care, we will consult Dr. Shea, retail sales manager.
[2016-11-15 10:24] VITALS: BP 134/62
[2016-11-15] MEDS: TRIAMCINOLONE ACET 0.1% OINTMENT 15 GM TOP SCH ×2 (12:21→21:46)
[2016-11-15 14:05] VITALS: BP 131/63
[2016-11-15 18:00] VITALS: BP 128/64
[2016-11-15 22:00] VITALS: BP 125/62
[2016-11-16 02:00] VITALS: BP 114/68
[2016-11-16 06:00] VITALS: BP 136/61
[2016-11-16 06:55] LABS: ANION GAP 8 MEQ/L (8-16); BLOOD UREA NITROGEN 15 MG/DL (7-18); CALCIUM LEVEL 9.1 MG/DL (8.8-10.2); CARBON DIOXIDE LEVEL 28 MEQ/L (21-32); CHLORIDE LEVEL 107 MEQ/L (98-107); CREATININE FOR GFR 0.58 MG/DL (0.55-1.02); GLOMERULAR FILTRATION RATE > 60.0 (>32); GLUCOSE, FASTING 83 MG/DL (83-110); POTASSIUM SERUM 3.9 MEQ/L (3.5-5.1); SODIUM LEVEL 143 MEQ/L (136-145)
[2016-11-16] MEDS: LACTOBACILLUS ACIDOPHILUS CAP (BACID) PO SCH ×2 (08:55→17:20)
[2016-11-16] MEDS: ASPIRIN 81 MG CHEW TABLET PO SCH (08:55)
[2016-11-16] MEDS: OMEPRAZOLE 20 MG CAP PO SCH (08:56)
[2016-11-16] MEDS: CLOPIDOGREL 75 MG TAB PO SCH (08:56)
[2016-11-16] MEDS: ATORVASTATIN 20 MG TAB PO SCH (08:56)
[2016-11-16] MEDS: CARVedilol 3.125 MG TAB PO SCH ×2 (08:58→21:00)
[2016-11-16] MEDS: LISINOPRIL 5 MG TAB PO SCH (08:58)
[2016-11-16] MEDS: TRIAMCINOLONE ACET 0.1% OINTMENT 15 GM TOP SCH ×2 (08:59→21:36)
[2016-11-16 10:00] VITALS: BP 100/52
[2016-11-16 14:00] VITALS: BP 131/61
--- NOTE | 2016-11-16 15:02 | IPN ---
DATE: 11/15/2016 Patient is seen and examined at the bedside. Chart has been reviewed. She has no complaints of chest pain, pressure or tightness, shortness of breath, palpitations, lightheadedness. Complains of generalized weakness, "I feel very tired today." PHYSICAL EXAMINATION: VITAL SIGNS: Temperature 98.9, pulse 70, respiratory rate 18, blood pressure 134/62, 93% on room air. LUNGS: Clear to auscultation. No wheezes, rales, or rhonchi. HEART: S1, S2. Sinus rhythm. ABDOMEN: Soft, nontender, nondistended. Positive bowel sounds. EXTREMITIES: No pitting edema. The patient has maculopapular erythematous rash on the back. Non pruritic. LABORATORY DATA: White count 10, hemoglobin 13, hematocrit 40, platelet count 123. Sodium 140, potassium 4, chloride 105, bicarbonate 28, BUN 17, creatinine 0.57, glucose of 107. ASSESSMENT AND PLAN: This is an 86-year-old female with a history of congestive heart failure, ejection fraction (EF) of 60% to 65%, normal systolic function, mild mitral regurgitation, moderate tricuspid regurgitation, pulmonary artery (PA) pressure 40-50, presented to the emergency room with shortness of breath, was found to have a troponin of 1.75, admitted and treated for zcd-IS-lifszlwdh myocardial infarction. CURRENT ISSUES: 1. Non-ST elevation myocardial infarction ([place]). Patient is being treated medically and conservatively. Asymptomatic. On the fifth day of Lovenox, which we will discontinue today. Continue on aspirin and Plavix and Lipitor. Due to bradycardia, beta blockade was initially discontinued. Low dose Coreg if tolerated will be started. To prevent GI bleed with aspirin and Plavix, we will give proton pump inhibitor as well. 2. Mild rhabdomyolysis. Patient was found on the floor for several hours. Kidney function is improved, as well as hypernatremia. 3. [place] valve, moderate tricuspid regurgitation with moderate pulmonary hypertension. No acute intervention. Continue to monitor respiratory status. 4. Dehydration, hypernatremia and rhabdomyolysis. Significantly improved. DISPOSITION: Awaiting inpatient rehabilitation. Needs nail care. Dr. Shea does not provide inpatient nail care. Per the family, they would like to take her home eventually to live with her son two hours away, [place] [facility]. [facility]
[2016-11-16 18:00] VITALS: BP 113/57
[2016-11-16 22:00] VITALS: BP 125/61
[2016-11-17 02:00] VITALS: BP 146/63
[2016-11-17 06:00] VITALS: BP 118/57
[2016-11-17 07:03] LABS: ANION GAP 6 MEQ/L (8-16); BLOOD UREA NITROGEN 15 MG/DL (7-18); CALCIUM LEVEL 8.7 MG/DL (8.8-10.2); CARBON DIOXIDE LEVEL 31 MEQ/L (21-32); CHLORIDE LEVEL 104 MEQ/L (98-107); CREATININE FOR GFR 0.64 MG/DL (0.55-1.02); GLOMERULAR FILTRATION RATE > 60.0 (>32); GLUCOSE, FASTING 87 MG/DL (83-110); POTASSIUM SERUM 4.2 MEQ/L (3.5-5.1); SODIUM LEVEL 141 MEQ/L (136-145)
[2016-11-17] MEDS: CARVedilol 3.125 MG TAB PO SCH ×2 (09:00→21:07)
[2016-11-17] MEDS: LACTOBACILLUS ACIDOPHILUS CAP (BACID) PO SCH ×2 (09:26→17:33)
[2016-11-17] MEDS: CLOPIDOGREL 75 MG TAB PO SCH (09:26)
[2016-11-17] MEDS: OMEPRAZOLE 20 MG CAP PO SCH (09:26)
[2016-11-17] MEDS: ATORVASTATIN 20 MG TAB PO SCH (09:26)
[2016-11-17] MEDS: TRIAMCINOLONE ACET 0.1% OINTMENT 15 GM TOP SCH ×2 (09:27→21:08)
[2016-11-17] MEDS: ASPIRIN 81 MG CHEW TABLET PO SCH (09:27)
[2016-11-17] MEDS: LISINOPRIL 5 MG TAB PO SCH (09:28)
[2016-11-17 10:00] VITALS: BP 128/56
[2016-11-17 14:00] VITALS: BP 115/56
[2016-11-17 18:00] VITALS: BP 116/53
[2016-11-17 22:00] VITALS: BP 134/60
[2016-11-18 02:00] VITALS: BP 126/68
--- NOTE | 2016-11-18 03:53 | IPN ---
DATE OF SERVICE: 11/17/2016 Patient is seen and examined at the bedside. Chart has been reviewed. No issues overnight. Patient is awake, alert, oriented, answering questions appropriately. Denies any chest pain, pressure or tightness, shortness of breath lightheadedness, near syncope. Complains of fatigue, and slept well overnight. Temperature 99.2, pulse 59, respiratory rate 17, blood pressure 128/56, 97% on room air. Generally, awake, alert, oriented to person, answering questions appropriately. No respiratory distress or use of respiratory accessory muscles. No jugular venous distention. Lungs are clear to auscultation. No wheezing, rales or rhonchi. Heart: S1, S2. Sinus rhythm. Abdomen is soft, nontender, nondistended. Positive bowel sounds. No hepatosplenomegaly, rebound or guarding. Extremities: No pitting edema. Skin: Patient has maculopapular rash on the back. She also has skin tears on the back with nonadherent dressing. LABORATORY DATA: Has been reviewed. ASSESSMENT AND PLAN: 86-year-old female with history of congestive heart failure (CHF), ejection fraction (EF) of 60-65%, mild mitral regurgitation, moderate tricuspid regurgitation, PA pressure of 40-50, presented to the emergency room with shortness of breath, was found to have troponin 1.75. She was found on the floor at home. Was also admitted for mild rhabdomyolysis. CURRENT ISSUES: 1. Non-ST elevation myocardial infarction ([place]). Patient has been treated medically and conservatively. Currently asymptomatic. Completed a full course of Lovenox. Currently on aspirin, Plavix, Lipitor. Due to bradycardia initial metoprolol is discontinued, currently on Coreg with holding parameters. To prevent gastrointestinal (GI) bleed with aspirin, Plavix, patient has been given a proton pump inhibitor (PPI). 2. Mild rhabdomyolysis. Patient was found on the floor for several hours. Kidney function has improved, as well as hypernatremia. Intravenous (IV) fluids have been discontinued. 3. [place] valve moderate tricuspid regurgitation with moderate pulmonary hypertension, no acute intervention. Monitor respiratory status and fluid status. 4. Dehydration, hypernatremia, rhabdomyolysis, improved. DISPOSITION: Awaiting inpatient rehabilitation acceptance. Needs nail care. Dr. Shea was unable to provide inpatient nail care; therefore, will defer to Dr. Nuñez for excavation laborer consult for nail care. Per the family, they would like her home eventually to live with her son 2 hours away south of [place]. LARRY
[2016-11-18 06:00] VITALS: BP 110/53
[2016-11-18 07:25] LABS: ANION GAP 8 MEQ/L (8-16); BLOOD UREA NITROGEN 17 MG/DL (7-18); CALCIUM LEVEL 8.6 MG/DL (8.8-10.2); CARBON DIOXIDE LEVEL 27 MEQ/L (21-32); CHLORIDE LEVEL 105 MEQ/L (98-107); CREATININE FOR GFR 0.55 MG/DL (0.55-1.02); GLOMERULAR FILTRATION RATE > 60.0 (>32); GLUCOSE, FASTING 80 MG/DL (83-110); POTASSIUM SERUM 4.3 MEQ/L (3.5-5.1); SODIUM LEVEL 140 MEQ/L (136-145)
[2016-11-18] MEDS: LISINOPRIL 5 MG TAB PO SCH (09:00)
[2016-11-18] MEDS: CARVedilol 3.125 MG TAB PO SCH ×2 (09:00→21:00)
[2016-11-18] MEDS: OMEPRAZOLE 20 MG CAP PO SCH (09:27)
[2016-11-18] MEDS: CLOPIDOGREL 75 MG TAB PO SCH (09:27)
[2016-11-18] MEDS: LACTOBACILLUS ACIDOPHILUS CAP (BACID) PO SCH ×2 (09:27→17:50)
[2016-11-18] MEDS: ATORVASTATIN 20 MG TAB PO SCH (09:27)
[2016-11-18] MEDS: ASPIRIN 81 MG CHEW TABLET PO SCH (09:27)
[2016-11-18] MEDS: TRIAMCINOLONE ACET 0.1% OINTMENT 15 GM TOP SCH ×2 (09:30→22:37)
[2016-11-18 10:00] VITALS: BP 109/63
--- NOTE | 2016-11-18 11:11 | IPN ---
DATE: 11/18/2016 SUBJECTIVE: Patient is seen and examined in the room today. Patient is sitting on the chair enjoying her breakfast. Patient shows signs of difficulty hearing, otherwise there is no complaint. I had a chance to talk to physical therapy. Patient does have a significant nail issue that prohibits her from working with physical therapy. Patient stated her nails have been growing for a long time and no one has been able to cut her nails. OBJECTIVE: VITAL SIGNS: Temperature 98.5, pulse 58, respiratory rate 17, blood pressure 110/53, pulse oximetry 92% in room air. GENERAL: No sign of acute distress. Alert and oriented times three. HEENT: Patient has difficulty hearing. Otherwise, is normocephalic, atraumatic. Extraocular motors grossly intact. CARDIOVASCULAR: Positive S1, S2, regular rate. LUNGS: Clear to auscultation bilaterally. No wheezes or rhonchi. ABDOMEN: Soft, nontender, nondistended. Bowel sounds present. No rebound. No guarding. EXTREMITIES: Significant tortuous nail of the 1st and 2nd toe bilaterally and there is some toe malformations. No lower extremity edema. No sign of cyanosis. LABORATORY DATA: WBC 10.7, hemoglobin 13.6, hematocrit 40.8, platelet count 123. Sodium 140, potassium 4.3, chloride 105, carbon dioxide 27, BUN 17, creatinine 0.55, GFR greater than 60, fasting glucose 80, calcium 8.6, total CK is 40, troponin is 0.02. ASSESSMENT AND PLAN: 1. Non-ST elevation myocardial infarction ([place]). Patient was treated medically. Currently asymptomatic. Patient completed a full course of Lovenox. Currently on aspirin, Plavix, and Lipitor. Patient is also on Coreg with holding parameters. Repeat cardiac markers have been ordered. Patient's troponin returned to normal range since 11/14/2016. 2. Rhabdomyolysis secondary to fall. Rhabdomyolysis is resolved. 3. [place] valve moderate tricuspid regurgitation with moderate pulmonary hypertension. Patient may benefit with outpatient cardiology followup. 4. Dehydration, resolved. 5. Tortuous toenails. Patient has significant toenail abnormalities that inhibit her from performing fully with physical therapy. However, the chemical processing technician is unable to come to the hospital for her nail issue. Patient is currently medically stable. Patient was changed to senior care facility (SNF) status and will try to arrange patient for outpatient chemical processing technician followup to treat her nails. 6. Deep venous thrombosis (DVT) prophylaxis. Patient will be on thromboembolic deterrents (TEDs) and sequential compression device.
[2016-11-18 14:00] VITALS: BP 116/55
[2016-11-18 18:00] VITALS: BP 128/65
[2016-11-18 22:00] VITALS: BP 126/58
[2016-11-19 06:00] VITALS: BP 118/75
[2016-11-19] MEDS: LISINOPRIL 5 MG TAB PO SCH (09:00)
[2016-11-19] MEDS: CARVedilol 3.125 MG TAB PO SCH ×2 (09:00→21:47)
[2016-11-19 10:00] VITALS: BP 133/64
[2016-11-19] MEDS: ASPIRIN 81 MG CHEW TABLET PO SCH (10:47)
[2016-11-19] MEDS: CLOPIDOGREL 75 MG TAB PO SCH (10:47)
[2016-11-19] MEDS: ATORVASTATIN 20 MG TAB PO SCH (10:48)
[2016-11-19] MEDS: OMEPRAZOLE 20 MG CAP PO SCH (10:48)
[2016-11-19] MEDS: LACTOBACILLUS ACIDOPHILUS CAP (BACID) PO SCH ×2 (10:48→18:03)
[2016-11-19] MEDS: TRIAMCINOLONE ACET 0.1% OINTMENT 15 GM TOP SCH ×2 (10:49→21:48)
[2016-11-19 14:00] VITALS: BP 148/67
--- NOTE | 2016-11-19 16:54 | CR ---
DATE OF CONSULTATION: 11/19/2016 at 12:41 p.m. CHIEF COMPLAINT: An 86-year-old pleasant female seen for evaluation of thick and painful nails. Patient is confused and is hard of hearing. Accurate history was unobtainable. Patient does state that she is not able to cut her toenails and has painful calluses on her foot. She remembers having calluses for a long period of time. She does not remember the last time she cut her toenails, but she states she can wear socks and shows and ambulate. She is seen today for evaluation. PHYSICAL EXAMINATION: Reveal dorsalis pedis and posterior tibialis pulses not to be palpable. There is a hyperkeratotic lesion present on the plantar aspect of the 2nd toe bilateral, submetatarsal 5 of the right foot, and the inferior aspect of the heels bilateral. Nails are extremely elongated. They measure up to 11 cm in length. They wrap around the lesser digits. There is good range of motion of the metatarsophalangeal joints. There is a moderate severe tailor's bunion deformity noted bilateral and flexible hammer toe deformities noted bilateral. ASSESSMENT: 1. Painful onychomycosis times 10. 2. Painful hyperkeratotic lesions as described. 3. Peripheral arterial disease. PLAN: Debride nails manually with electric bur times 10. Debride hyperkeratotic lesions. Followup as needed for continued conservative foot care.
[2016-11-19 18:00] VITALS: BP 128/57
[2016-11-19 22:00] VITALS: BP 124/58
[2016-11-20 02:00] VITALS: BP 115/54
[2016-11-20 06:00] VITALS: BP 111/55
[2016-11-20] MEDS: ATORVASTATIN 20 MG TAB PO SCH (10:16)
[2016-11-20] MEDS: OMEPRAZOLE 20 MG CAP PO SCH (10:16)
[2016-11-20] MEDS: LACTOBACILLUS ACIDOPHILUS CAP (BACID) PO SCH ×2 (10:16→18:36)
[2016-11-20] MEDS: LISINOPRIL 5 MG TAB PO SCH (10:17)
[2016-11-20] MEDS: CARVedilol 3.125 MG TAB PO SCH ×2 (10:17→20:32)
[2016-11-20] MEDS: ASPIRIN 81 MG CHEW TABLET PO SCH (10:17)
[2016-11-20] MEDS: CLOPIDOGREL 75 MG TAB PO SCH (10:18)
[2016-11-20 14:00] VITALS: BP 113/53
[2016-11-20 20:00] VITALS: BP 120/57
[2016-11-21 06:00] VITALS: BP 113/55
[2016-11-21] MEDS: ATORVASTATIN 20 MG TAB PO SCH (08:27)
[2016-11-21] MEDS: OMEPRAZOLE 20 MG CAP PO SCH (08:27)
[2016-11-21] MEDS: LACTOBACILLUS ACIDOPHILUS CAP (BACID) PO SCH (08:27)
[2016-11-21 08:28] VITALS: BP 106/54
[2016-11-21] MEDS: ASPIRIN 81 MG CHEW TABLET PO SCH (08:28)
[2016-11-21] MEDS: LISINOPRIL 5 MG TAB PO SCH (08:28)
[2016-11-21] MEDS: CLOPIDOGREL 75 MG TAB PO SCH (08:28)
[2016-11-21] MEDS: CARVedilol 3.125 MG TAB PO SCH (08:28)
[2016-11-21] MEDS ORDERED: OMEP40CA2 PO (11:58)
[2016-11-21] MEDS ORDERED: CARV12.5 PO (11:58)
[2016-11-21] MEDS ORDERED: PLAV75TA38 PO (11:58)
[2016-11-21] MEDS ORDERED: ATOR40TA PO (11:58)
[2016-11-21] MEDS ORDERED: LISI-542 PO (11:58)
[2016-11-21] MEDS ORDERED: ASPI1TAB PO (11:58)
--- NOTE | 2016-11-21 15:48 | DSES ---
DATE OF ADMISSION: 11/10/2016 DATE OF DISCHARGE: 11/21/2016 CONSULTANTS: Broadband Installer, Dr. Peralta JOB SITE SUPERINTENDENT: Dr. Ernandez PROCEDURES: Toenail debridement by Dr. Ernandez on 11/19/2016. COMPLICATIONS: None. ADMISSION/DISCHARGE DIAGNOSES: 1. Flt-US-kuxwdqtmm myocardial infarction. 2. Rhabdomyolysis secondary to fall. 3. [place] valve moderate tricuspid regurgitation with moderate pulmonary hypertension. 4. Dehydration. 5. Painful onychomycosis. HOSPITALIZATION COURSE: Patient is an 86-year-old female who presented to [facility] on 11/10/2016 after finding the patient on the floor for unknown period. In the emergency room, patient was found to have elevated troponin with EKG abnormalities. Dr. Peralta was consulted and recommended to manage patient medically. Patient's condition and the management were discussed with family member. Patient was admitted to the monitor floor for cul-RZ-ihgchmkgo myocardial infarction (NSTEMI). Patient was started on Lovenox and metoprolol. Patient also shown to have leukocytosis, and patient was started on empiric broad-spectrum antibiotics. Intravenous (IV) fluid started for patient's rhabdomyolysis secondary to the fall. With medical management, patient's mentation started to improve. Patient has actually become more oriented. While patient was on the monitor, there were several episodes of bradycardia with a heart rate less than 50 observed, and patient's medications have been actively managed. With gradual recovery of patient's functional status, patient has been working with physical therapy. Later it was found out patient has significant onychomycosis, and the spinning doffer, Dr. Ernandez, has been consulted for the nail removal. On 11/18/2016, patient was determined medically stable for discharge home with recommendations to followup with her primary care provider and fleet service clerk in 1 week. Patient should continue to take aspirin, Plavix, and Lipitor. Patient also should continue taking her Coreg. OBJECTIVE: VITAL SIGNS: Temperature 99, pulse 56, respirations 18, blood pressure 113/55, pulse oximetry 94% in room air. LABORATORY DATA: WBC 10.7, hemoglobin is 13.6, hematocrit 40.8, platelet count is 123. Sodium is 140, potassium 4.3, chloride 105, carbon dioxide 27, BUN 17, creatinine 0.55, GFR greater than 60, fasting glucose 80, calcium is 8.6. Troponin I is 0.02. On the day of admission troponin was 1.75. Microbiology: Blood cultures: No growth after 5 days. Urine cultures negative. Respiratory virus panel is negative. IMAGING STUDIES: CT of the head without contrast shows small-vessel ischemic disease, mild volume loss. Chest x-ray shows no active disease. 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 Diffuse osteopenia. No fracture. DISCHARGE MEDICATIONS: - aspirin 81 mg by mouth daily - atorvastatin 40 mg by mouth daily - carvedilol 50 mg by mouth twice a day - Plavix 75 mg by mouth daily - lisinopril 5 mg by mouth daily - omeprazole 40 mg by mouth daily - calcium supplement - vitamin D supplement - multivitamin DISCHARGE INSTRUCTIONS: Discontinue line. Discharge home. Activity as tolerated. Patient should be on fall precautions. Low-salt diet as tolerated. Patient shall followup with her primary care provider and fleet service clerk in 1 week. DISCHARGE CONDITION: Stable. DISCHARGE TIME: Greater than 30 minutes.
== END 2016-11-21 13:16 | disposition home health service (06) | DRG 280 ==
LOC: EDBD 13:11 → M ED 15:18 → M ED INP 20:18 → M ICU 21:40 → M MSPAV 11-12 21:28
PROVIDERS: ADMIT Internal Medicine; ATTEND Internal Medicine
DX: I21.4 Non-ST elevation (NSTEMI) myocardial infarction (principal); G93.41 Metabolic encephalopathy; N17.9 Acute kidney failure, unspecified; E87.2 Acidosis; M62.82 Rhabdomyolysis; E87.0 Hyperosmolality and hypernatremia; B35.1 Tinea unguium; D72.829 Elevated white blood cell count, unspecified; M21.621 Bunionette of right foot; M21.622 Bunionette of left foot; M20.42 Other hammer toe(s) (acquired), left foot; M20.41 Other hammer toe(s) (acquired), right foot; I36.1 Nonrheumatic tricuspid (valve) insufficiency; I27.2 Other secondary pulmonary hypertension; Z66 Do not resuscitate; Z79.82 Long term (current) use of aspirin; Z79.899 Other long term (current) drug therapy